=== PATIENT | male | born 1990 | race African-American/Black ===

== ENCOUNTER 2024-11-12 22:17 | Emergency (ER) | payer BC, OTHER ==
--- NOTE | 2024-11-12 22:57 | ER ---
Nurse's Notes [facility] Name: Maico Ojeda Age: 34 yrs Sex: Male : 1990 Arrival Date: 11/12/2024 Time: 22:17 Bed DX4 Private MD: Diagnosis: Acute contact dermatitis secondary to poison praful Presentation: 11/12 22:32 Chief complaint: Patient states: WAS WORKING OUTSIDE X1 WEEK AGO AND BELIEVES HE CAME dd2 IN CONTACT WITH POISON PRAFUL. PT REPORTS ITCHING ADN DRY PATCHES TO CHEST, BACK AND ARMS. Coronavirus screen: At this time, the client does not indicate any symptoms associated with coronavirus-19. Ebola Screen: No symptoms or risks identified at this time. Initial Sepsis Screen: Does the patient meet any 2 criteria? No. Patient's initial sepsis screen is negative. Does the patient have a suspected source of infection? No. Patient's initial sepsis screen is negative. Risk Assessment: Do you want to hurt yourself or someone else? Patient reports no desire to harm self or others. Onset of symptoms is unknown. 22:32 Method Of Arrival: Ambulatory dd2 22:32 Acuity: SAM 4 dd2 Triage Assessment: 22:34 General: Appears in no apparent distress. Behavior is calm, cooperative, appropriate dd2 for age. Pain: Denies pain. Derm: Skin is intact, Skin is dry, Skin is normal, Skin temperature is warm Reports burning, itching. Historical: - Allergies: 22:34 No Known Allergies; dd2 - PMHx: 22:34 None; dd2 - PSHx: 22:34 None; dd2 - Immunization history:: Adult Immunizations up to date. - Infectious Disease History:: Denies. - Social history:: Smoking status: Reported history of juuling and/or vaping. - Family history:: not pertinent. Screenin:40 [facility] ED Fall Risk Assessment (Adult) History of falling in the last 3 months, vc1 including since admission No falls in past 3 months (0 pts) Confusion or Disorientation No (0 pts) Intoxicated or Sedated No (0 pts) Impaired Gait No (0 pts) Mobility Assist Device Used No (0 pt) Altered Elimination No (0 pt) Score/Fall Risk Level 0 - 2 = Low Risk Oriented to surroundings, Maintained a safe environment, Educated pt \T\ family on fall prevention, incl call for assistance when getting out of bed. Abuse screen: Denies threats or abuse. Nutritional screening: No deficits noted. Tuberculosis screening: No symptoms or risk factors identified. Vital Signs: 22:32 BP 117 / 90; Pulse 110; Resp 17; Temp 98.4; Pulse Ox 99% on R/A; Weight 83.91 kg; dd2 Height 5 ft. 6 in. ; 23:41 BP 114 / 88; Pulse 99; Resp 18; Pulse Ox 99% ; vc1 22:32 Body Mass Index 29.86 (83.91 kg, 167.64 cm) dd2 [place] Coma Score: 11/13 23:34 Eye Response: spontaneous(4). Motor Response: obeys commands(6). Verbal Response: sp4 oriented(5). Total: 15. ED Course: 11/12 22:20 Patient arrived in ED. mr 22:24 Jose Celeste MD is Attending Physician. sp4 22:34 Triage completed. dd2 22:34 Arm band placed on right wrist. dd2 23:35 Jodee Hong, RN is Primary Nurse. vc1 23:40 Patient has correct armband on for positive identification. Provided Education on: f/u vc1 with PCP. 23:41 No provider procedures requiring assistance completed. Patient did not have IV access vc1 during this emergency room visit. Administered Medications: 23:22 Drug: MethylPREDNISolone Sodium Succinate IM 125 mg IM once Route: IM; Site: left vc1 gluteus; 23:40 Follow up: Response: No adverse reaction vc1 23:22 Drug: diphenhydrAMINE PO 50 mg PO once Route: PO; vc1 23:39 Follow up: Response: No adverse reaction vc1 23:22 Drug: Famotidine PO 20 mg PO once Route: PO; vc1 23:39 Follow up: Response: No adverse reaction vc1 Medication: 23:41 VIS not applicable for this client. vc1 Outcome: 22:57 Discharge ordered by . sp4 23:41 Discharged to home ambulatory, with significant other, vc1 23:41 Condition: stable 23:41 Discharge instructions given to patient, Instructed on discharge instructions, follow up and referral plans. medication usage, Demonstrated understanding of instructions, follow-up care, medications, Prescriptions given X 2, 23:41 Patient left the ED. vc1 Signatures: Brenda Rojas, Reg Reg mr Jodee Hong, RN RN vc1 Jose Celeste MD MD sp4 NIR ENGLISH RN RN dd2
--- NOTE | 2024-11-12 22:57 | EDPHYS ---
Physician Documentation [facility] Name: Maico Ojeda Age: 34 yrs Sex: Male : 1990 Arrival Date: 11/12/2024 Time: 22:17 Bed DX4 Private MD: ED Physician Jose Celeste HPI: 11/12 22:24 This 34 yrs old Black Male presents to ER via Unassigned with complaints of Poison yanci. sp4 11/13 23:34 Patient presents with complaint of diffuse poison yanci rash particularly on the left sp4 side.. Historical: - Allergies: 11/12 22:34 No Known Allergies; dd2 - PMHx: 22:34 None; dd2 - PSHx: 22:34 None; dd2 - Immunization history:: Adult Immunizations up to date. - Infectious Disease History:: Denies. - Social history:: Smoking status: Reported history of juuling and/or vaping. - Family history:: not pertinent. ROS: 11/13 23:34 Constitutional: Negative for fever, chills, and weight loss, positive for rash and sp4 itching secondary to poison yanci All other systems are negative, Exam: 23:34 Constitutional: This is a well developed, well nourished patient who is awake, alert, sp4 and in no acute distress. Head/Face: Normocephalic, atraumatic. Eyes: Pupils equal round and reactive to light, extra-ocular motions intact. Lids and lashes normal. Conjunctiva and sclera are not injected. Cornea within normal limits. Periorbital areas with no swelling, redness, or edema. ENT: Nares patent. No nasal discharge, no septal abnormalities noted. Tympanic membranes are normal and external auditory canals are clear. Oropharynx with no redness, swelling, or masses, exudates, or evidence of obstruction, uvula midline. Mucous membranes moist. Neck: Trachea midline, no thyromegaly or masses palpated, and no cervical lymphadenopathy. Supple, full range of motion without nuchal rigidity, or vertebral point tenderness. Chest/axilla: Normal chest wall appearance and motion. Nontender with no deformity. No lesions are appreciated. Cardiovascular: Regular rate and rhythm with a normal S1 and S2. No gallops, murmurs, or rubs. Normal PMI, no JVD. No pulse deficits. Respiratory: Lungs have equal breath sounds bilaterally, clear to auscultation and percussion. No rales, rhonchi or wheezes noted. No increased work of breathing, no retractions or nasal flaring. Abdomen/GI: Soft, with normal bowel sounds. No distension or tympany. No guarding or rebound. No evidence of tenderness throughout. Back: No spinal tenderness. No costovertebral tenderness. Skin: Warm, dry with normal turgor. Normal color with small amount of rash posterior back and left arm MS/ Extremity: Pulses equal, no cyanosis. Neurovascular intact. Full, normal range of motion. Neuro: Awake and alert, GCS 15, oriented to person, place, time, and situation. Cranial nerves II-XII grossly intact. Motor strength 5/5 in all extremities. Sensory grossly intact. Psych: Awake, alert, with orientation to person, place and time. Behavior, mood, and affect are within normal limits Vital Signs: 11/12 22:32 BP 117 / 90; Pulse 110; Resp 17; Temp 98.4; Pulse Ox 99% on R/A; Weight 83.91 kg; dd2 Height 5 ft. 6 in. ; 23:41 BP 114 / 88; Pulse 99; Resp 18; Pulse Ox 99% ; vc1 22:32 Body Mass Index 29.86 (83.91 kg, 167.64 cm) dd2 [place] Coma Score: 11/13 23:34 Eye Response: spontaneous(4). Motor Response: obeys commands(6). Verbal Response: sp4 oriented(5). Total: 15. MDM: 11/12 22:31 Medical Screening Exam initiated sp4 11/13 23:34 Differential diagnosis: impetigo, varicella, allergic reaction, parasite infection. sp4 Data reviewed: vital signs, nurses notes, old medical records. Consideration of Admission/Observation Escalation of care including admission/observation considered. ED course: Patient was medicated for acute poison yanci dermatitis. Stable for discharge home. Administered Medications: 11/12 23:22 Drug: MethylPREDNISolone Sodium Succinate IM 125 mg IM once Route: IM; Site: left vc1 gluteus; 23:40 Follow up: Response: No adverse reaction vc1 23:22 Drug: diphenhydrAMINE PO 50 mg PO once Route: PO; vc1 23:39 Follow up: Response: No adverse reaction vc1 23:22 Drug: Famotidine PO 20 mg PO once Route: PO; vc1 23:39 Follow up: Response: No adverse reaction vc1 Disposition Summary: 11/12/24 22:57 Discharge Ordered Problem: new sp4 Symptoms: have improved sp4 Condition: Stable sp4 Diagnosis - Acute contact dermatitis secondary to poison yanci sp4 Followup: sp4 - With: Private Physician - When: As needed - Reason: Recheck today's complaints Discharge Instructions: - Discharge Summary Sheet sp4 - Poison Yanci Dermatitis, [id number] sp4 Forms: - Work release form sp4 - Patient Portal Instructions sp4 Prescriptions: - Benadryl 25 mg Oral capsule - take 1 capsule ORAL route every 8 hours As needed PRN itching; 30 tablet; sp4 Refills: 0, Product Selection Permitted - Prednisone 20 mg Oral tablet - take 1 tablet ORAL route once daily for 10 days; 10 tablet; Refills: 0, Product sp4 Selection Permitted Signatures: Jodee Hong RN RN vc1 Jose Celeste MD MD sp4 NIR ENGLISH RN RN dd2
[2024-11-12] MEDS ORDERED: FAMOTIDINE 20 MG TAB ONE (23:16)
[2024-11-12] MEDS ORDERED: DIPHENHYDRAMINE 25 MG TAB/CAP ONE (23:16)
[2024-11-12] MEDS ORDERED: METHYLPREDNISOLONE 125 MG INJ ONE (23:16)
[2024-11-12 23:46] VITALS: TEMP 98.4; O2SAT 99
[2024-11-12 23:48] VITALS: BP 114/88
== END 2024-11-12 23:41 | disposition home or self-care (01) ==
LOC: ER 22:17
DX: L25.5 Unspecified contact dermatitis due to plants, except food (principal)
CPT/HCPCS: 96372; 99284; J2919